=== PATIENT | male | born 1940 | race Caucasian/White ===

== ENCOUNTER 2018-12-19 14:46 | Inpatient (IN) | payer MEDICARE, BC ==
[2018-12-19] MEDS: LEVALBUTEROL (NEB) 1.25 MG/0.5 ML AMP INH (16:57)
[2018-12-19] MEDS: IPRATROPIUM (NEB) 0.5 MG/2.5 ML AMP NEB (16:57)
[2018-12-19 17:22] LABS: WHITE BLOOD COUNT 10.8 10^3/ul (4.8-10.8)
[2018-12-19 17:22] LABS: ABNORMAL IP MESSAGE 1; HEMATOCRIT 37.1 % (42.0-52.0); HEMOGLOBIN 12.4 g/dl (14.0-18.0); MEAN CORPUSCULAR HEMOGLOBIN 30.2 pg (29.0-33.0); MEAN CORPUSCULAR HGB CONC 33.4 g/dl (32.0-37.0); MEAN CORPUSCULAR VOLUME 90.5 fl (82.0-101.0); MEAN PLATELET VOLUME 11.6 fl (7.4-10.4); PLATELET COUNT 228 10^3/UL (140-415); POSITIVE DIFF @See below
[2018-12-19 17:28] LABS: ADD MAN DIFF? YES
[2018-12-19 17:39] LABS: PROTIME 12.3 Sec (11.9-14.9)
[2018-12-19 17:40] LABS: PARTIAL THROMBOPLASTIN TIME 35.3 Sec (23.0-35.0)
[2018-12-19 17:43] LABS: ALANINE AMINOTRANSFERASE 6 IU/L (13-69); ALBUMIN 4.1 g/dl (3.3-4.9); ALBUMIN/GLOBULIN RATIO 0.89; ALKALINE PHOSPHATASE 151 IU/L (42-121); ANION GAP 14 (5-13); ASPARTATE AMINO TRANSFERASE 26 IU/L (15-46); BILIRUBIN,INDIRECT 0.6 mg/dl (0-1.1); BILIRUBIN,TOTAL 0.6 mg/dl (0.2-1.3); BLOOD UREA NITROGEN 34 mg/dl (7-20); CALCIUM 9.5 mg/dl (8.4-10.2); CARBON DIOXIDE 22 mmol/L (21-31); CHLORIDE 100 mmol/L (97-110); CREATININE 1.26 mg/dl (0.61-1.24); GLUCOSE 98 mg/dl (70-220); POTASSIUM 4.9 mmol/L (3.5-5.1); SODIUM 136 mmol/L (135-144); TOTAL PROTEIN 8.7 g/dl (6.1-8.1)
[2018-12-19 17:53] LABS: TROPONIN-I < 0.012 ng/ml (0.000-0.120)
[2018-12-19] MEDS: SODIUM CHLORIDE 0.9% 1L BAG IV* (17:55)
[2018-12-19 18:14] LABS: BAND NEUTROPHILS #M 1.2 10^3/ul (0.0-0.6); BAND NEUTROPHILS % (M) 12 % (0-4); LYMPHOCYTES #M 1.7 10^3/ul (0.8-2.9); LYMPHOCYTES % (M) 16 % (15-51); MONOCYTE #M 2.2 10^3/ul (0.3-0.9); MONOCYTES % (M) 21 % (0-11); PLATELET ESTIMATE NORMAL; POIKILOCYTOSIS 1+ (0-0); SEG NEUT #M 5.6 10^3/ul (1.6-7.5); SEGMENTED NEUTROPHILS (M) % 51 % (39-77); SMUDGE%M 6 % (0-0)
[2018-12-19] MEDS: IODIXANOL LOCM 100 ML BTL (19:09)
[2018-12-19] MEDS: SOD CHLORIDE 0.9% 100 ML (19:09)
[2018-12-19 20:07] LABS: ADD UMIC YES; UR ASCORBIC ACID NEGATIVE (NEGATIVE); UR BILIRUBIN (Dip) NEGATIVE (NEGATIVE); UR BLOOD (Dip) NEGATIVE (NEGATIVE); UR CLARITY SLIGHTLY CLOUDY (CLEAR); UR COLOR AMBER (YELLOW); UR GLUCOSE (Dip) NEGATIVE (NEGATIVE); UR KETONES (Dip) NEGATIVE (NEGATIVE); UR LEUKOCYTE ESTERASE (Dip) NEGATIVE Leu/ul (NEGATIVE); UR NITRITE (Dip) NEGATIVE (NEGATIVE); UR RBC 6 /HPF (0-5); UR SPECIFIC GRAVITY (Dip) 1.042 (1.003-1.030); UR SQUAMOUS EPITHELIAL CELL FEW /HPF (FEW); UR TOTAL PROTEIN (Dip) 2+ mg/dl (NEGATIVE); UR UROBILINOGEN (Dip) 2+ mg/dL (NEGATIVE); UR WBC 4 /HPF (0-5)
[2018-12-19] MEDS: CEFTRIAXONE 1 GM/50 ML (PMX) 50 ML IVPB (20:18)
[2018-12-19] MEDS ORDERED: NACL 0.9% 3 ML SYG IV (20:30)
[2018-12-19] MEDS ORDERED: BISACODYL (EC) 5 MG TAB PO (20:30)
[2018-12-19] MEDS ORDERED: ACETAMINOPHEN 325 MG TAB PO (20:30)
[2018-12-19] MEDS ORDERED: ONDANSETRON 4 MG INJ IV (20:30)
[2018-12-19] MEDS ORDERED: DOCUSATE SODIUM 100 MG CAP PO (20:30)
[2018-12-19] MEDS: AZITHROMYCIN 500MG/NS (PMX) 250 ML IVPB (20:47)
[2018-12-19 22:07] LABS: AADO2 Arterial 72.7 mmHg (7.0-24.0); Allen Test ACCEPTAB; Arterial Base Excess -4.3 mmol/L (-3.0-3); Arterial Blood Gas Oxygen Sat 93.1 mmHG (95.0-100.0); Arterial COHb 0.2 % (0.0-3.0); Arterial Fraction of Oxyhgb 92.6 % (93.0-99.0); Arterial HCO3 21.2 mmol/L (22.0-26.0); Arterial MetHb 0.3 % (0.0-1.5); Arterial pCO2 40.7 mmhg (35-45); MODE NASAL CANNULA; Site Right Radial
[2018-12-19] MEDS: METHYLPREDNISOLONE 125 MG INJ IV (22:23)
[2018-12-19] MEDS: hydrALAzine 20 MG INJ IV (23:00)
[2018-12-19] MEDS: IPRATROPIUM (NEB) 0.5 MG/2.5 ML AMP HHN (23:00)
[2018-12-19] MEDS: LEVALBUTEROL (NEB) 1.25 MG/0.5 ML AMP HHN (23:00)
[2018-12-20] MEDS: LORAZEPAM 2 MG INJ IV
[2018-12-20] MEDS: IPRATROPIUM (NEB) 0.5 MG/2.5 ML AMP HHN ×6 (00:05→20:16)
[2018-12-20] MEDS: LEVALBUTEROL (NEB) 1.25 MG/0.5 ML AMP HHN ×6 (00:05→20:16)
[2018-12-20] MEDS ORDERED: ALBUTEROL/IPRATROPIUM (NEB) 3 ML AMP HHN (01:00)
[2018-12-20 06:40] LABS: ADD MAN DIFF? NO
[2018-12-20] MEDS: PANTOPRAZOLE (EC) 40 MG TAB PO (06:50)
[2018-12-20 07:01] LABS: WHITE BLOOD COUNT 6.8 10^3/ul (4.8-10.8)
[2018-12-20 07:01] LABS: ABNORMAL IP MESSAGE 1; BASOPHILS % 0.3 % (0.0-2.0); HEMATOCRIT 31.8 % (42.0-52.0); HEMOGLOBIN 10.6 g/dl (14.0-18.0); LYMPHOCYTES # 0.4 10^3/ul (0.8-2.9); LYMPHOCYTES % 5.6 % (15.0-51.0); MEAN CORPUSCULAR HEMOGLOBIN 30.2 pg (29.0-33.0); MEAN CORPUSCULAR HGB CONC 33.3 g/dl (32.0-37.0); MEAN CORPUSCULAR VOLUME 90.6 fl (82.0-101.0); MONOCYTE # 0.3 10^3/ul (0.3-0.9); MONOCYTES % 4.3 % (0.0-11.0); NEUTROPHILS % 88.8 % (39.0-77.0); PLATELET COUNT 234 10^3/UL (140-415); POSITIVE DIFF @See below; RED BLOOD COUNT 3.51 10^6/ul (4.70-6.10); RED CELL DISTRIBUTION WIDTH 12.8 % (11.5-14.5)
[2018-12-20 07:08] LABS: HEMOGLOBIN A1C 5.2 % (0-5.9)
[2018-12-20 07:41] LABS: ALBUMIN 3.3 g/dl (3.3-4.9); ALBUMIN/GLOBULIN RATIO 0.86; ALKALINE PHOSPHATASE 130 IU/L (42-121); ANION GAP 12 (5-13); ASPARTATE AMINO TRANSFERASE 19 IU/L (15-46); BILIRUBIN,INDIRECT 0.2 mg/dl (0-1.1); BILIRUBIN,TOTAL 0.2 mg/dl (0.2-1.3); BLOOD UREA NITROGEN 24 mg/dl (7-20); CALCIUM 8.8 mg/dl (8.4-10.2); CARBON DIOXIDE 24 mmol/L (21-31); CHLORIDE 103 mmol/L (97-110); CHOL/HDL RATIO 4.4 RATIO; CHOLESTEROL 106 mg/dl (100-200); CREATININE 0.93 mg/dl (0.61-1.24); GLUCOSE 165 mg/dl (70-220); HDL CHOLESTEROL 24 mg/dl (31-75); LDL CHOLESTEROL,CALCULATED 62 mg/dl; MAGNESIUM 1.5 mg/dl (1.7-2.5); POTASSIUM 3.8 mmol/L (3.5-5.1); SODIUM 139 mmol/L (135-144); TOTAL PROTEIN 7.1 g/dl (6.1-8.1); TRIGLYCERIDES 98 mg/dl (0-149)
[2018-12-20 07:45] LABS: ALANINE AMINOTRANSFERASE < 6 IU/L (13-69)
[2018-12-20 07:50] LABS: THYROID STIMULATING HORMONE 0.057 MIU/L (0.465-4.680)
[2018-12-20] MEDS: predniSONE 20 MG TAB PO ×2 (08:25→21:44)
[2018-12-20] MEDS: AMLODIPINE 5 MG TAB PO (08:26)
[2018-12-20] MEDS: CARBIDOPA/LEVODOPA (25/100) TAB PO ×3 (08:31→21:44)
[2018-12-20] MEDS: MAGNESIUM SULFATE 2 GM/50 ML 50 ML IVPB (15:16)
[2018-12-20] MEDS: ASPIRIN 81 MG TAB PO (15:26)
[2018-12-20 15:27] LABS: CREATINE KINASE 73 IU/L (23-200)
[2018-12-20 15:40] LABS: CK INDEX 7.7
[2018-12-20 15:45] LABS: CK-MB 5.59 ng/ml (0.0-2.4); TROPONIN-I 0.206 ng/ml (0.000-0.120)
[2018-12-20] MEDS: CEFTRIAXONE 1 GM/50 ML (PMX) 50 ML IVPB (17:50)
[2018-12-20] MEDS: AZITHROMYCIN 500MG/NS (PMX) 250 ML IVPB (18:08)
[2018-12-20] MEDS: ATORVASTATIN 40 MG TAB PO (21:44)
[2018-12-20] MEDS: HEPARIN 5,000 UNIT/1 ML VIAL SC (23:01)
[2018-12-21] MEDS: IPRATROPIUM (NEB) 0.5 MG/2.5 ML AMP HHN ×6 (01:57→20:07)
[2018-12-21] MEDS: LEVALBUTEROL (NEB) 1.25 MG/0.5 ML AMP HHN ×6 (01:57→20:07)
[2018-12-21] MEDS: PANTOPRAZOLE (EC) 40 MG TAB PO (05:44)
[2018-12-21 06:17] LABS: ADD MAN DIFF? NO
[2018-12-21 06:28] LABS: BASOPHIL # 0.1 10^3/ul (0.0-0.1); BASOPHILS % 0.7 % (0.0-2.0); HEMATOCRIT 33.2 % (42.0-52.0); HEMOGLOBIN 11.1 g/dl (14.0-18.0); LYMPHOCYTES # 1.2 10^3/ul (0.8-2.9); LYMPHOCYTES % 6.4 % (15.0-51.0); MEAN CORPUSCULAR HEMOGLOBIN 30.1 pg (29.0-33.0); MEAN CORPUSCULAR HGB CONC 33.4 g/dl (32.0-37.0); MONOCYTE # 1.5 10^3/ul (0.3-0.9); MONOCYTES % 8.1 % (0.0-11.0); NEUTROPHIL # 14.6 10^3/ul (1.6-7.5); PLATELET COUNT 383 10^3/UL (140-415); RED BLOOD COUNT 3.69 10^6/ul (4.70-6.10); RED CELL DISTRIBUTION WIDTH 12.8 % (11.5-14.5)
[2018-12-21 06:28] LABS: WHITE BLOOD COUNT 18.2 10^3/ul (4.8-10.8)
[2018-12-21 06:39] LABS: ANION GAP 16 (5-13); BLOOD UREA NITROGEN 29 mg/dl (7-20); CARBON DIOXIDE 18 mmol/L (21-31); CHLORIDE 107 mmol/L (97-110); CREATININE 0.99 mg/dl (0.61-1.24); GLUCOSE 190 mg/dl (70-220); POTASSIUM 3.8 mmol/L (3.5-5.1); SODIUM 141 mmol/L (135-144)
[2018-12-21 06:55] LABS: CREATINE KINASE 140 IU/L (23-200)
[2018-12-21 07:04] LABS: CK INDEX 6.2
[2018-12-21 07:22] LABS: CK-MB 8.71 ng/ml (0.0-2.4); TROPONIN-I 0.148 ng/ml (0.000-0.120)
[2018-12-21] MEDS: AMLODIPINE 5 MG TAB PO (08:36)
[2018-12-21] MEDS: predniSONE 20 MG TAB PO (08:36)
[2018-12-21] MEDS: ASPIRIN 81 MG TAB PO (08:36)
[2018-12-21] MEDS: CARBIDOPA/LEVODOPA (25/100) TAB PO ×3 (08:36→20:36)
[2018-12-21] MEDS: HEPARIN 5,000 UNIT/1 ML VIAL SC ×2 (08:40→20:53)
[2018-12-21 10:45] LABS: AADO2 Arterial 92.4 mmHg (7.0-24.0); Allen Test ACCEPTAB; Arterial Base Excess -1.3 mmol/L (-3.0-3); Arterial Blood Gas Oxygen Sat 96.1 mmHG (95.0-100.0); Arterial COHb 0 % (0.0-3.0); Arterial Fraction of Oxyhgb 95.9 % (93.0-99.0); Arterial HCO3 22.3 mmol/L (22.0-26.0); Arterial MetHb 0.2 % (0.0-1.5); Arterial pCO2 33.4 mmhg (35-45); MODE NASAL CANNULA; Site Left Radial
[2018-12-21] MEDS: METOPROLOL 25 MG TAB PO ×2 (12:39→20:36)
[2018-12-21] MEDS: CEFTRIAXONE 1 GM/50 ML (PMX) 50 ML IVPB (17:34)
[2018-12-21] MEDS: AZITHROMYCIN 500MG/NS (PMX) 250 ML IVPB (18:23)
[2018-12-21] MEDS: ATORVASTATIN 40 MG TAB PO (20:35)
[2018-12-21] MEDS: MELATONIN 5 MG TABLET PO (20:36)
[2018-12-21] MEDS: LORAZEPAM 2 MG INJ IV (21:51)
[2018-12-22] MEDS: IPRATROPIUM (NEB) 0.5 MG/2.5 ML AMP HHN ×6 (00:52→20:08)
[2018-12-22] MEDS: LEVALBUTEROL (NEB) 1.25 MG/0.5 ML AMP HHN ×6 (00:52→20:07)
[2018-12-22] MEDS: HALOPERIDOL 5 MG INJ IM (04:08)
[2018-12-22] MEDS: PANTOPRAZOLE (EC) 40 MG TAB PO (05:56)
[2018-12-22 07:21] LABS: ADD MAN DIFF? NO
[2018-12-22 07:27] LABS: ABNORMAL IP MESSAGE 1; BASOPHIL # 0.1 10^3/ul (0.0-0.1); BASOPHILS % 0.4 % (0.0-2.0); EOSINOPHILS % 0.1 % (0.0-7.0); HEMATOCRIT 32.1 % (42.0-52.0); HEMOGLOBIN 10.7 g/dl (14.0-18.0); LYMPHOCYTES # 1.5 10^3/ul (0.8-2.9); LYMPHOCYTES % 8.4 % (15.0-51.0); MEAN CORPUSCULAR HEMOGLOBIN 30.1 pg (29.0-33.0); MEAN CORPUSCULAR HGB CONC 33.3 g/dl (32.0-37.0); MEAN CORPUSCULAR VOLUME 90.2 fl (82.0-101.0); MEAN PLATELET VOLUME 10.1 fl (7.4-10.4); MONOCYTE # 1.6 10^3/ul (0.3-0.9); MONOCYTES % 9.1 % (0.0-11.0); NEUTROPHIL # 14.1 10^3/ul (1.6-7.5); NEUTROPHILS % 79.1 % (39.0-77.0); PLATELET COUNT 354 10^3/UL (140-415); POSITIVE DIFF @See below; RED BLOOD COUNT 3.56 10^6/ul (4.70-6.10); RED CELL DISTRIBUTION WIDTH 12.9 % (11.5-14.5)
[2018-12-22 07:27] LABS: WHITE BLOOD COUNT 17.8 10^3/ul (4.8-10.8)
[2018-12-22 07:42] LABS: ANION GAP 12 (5-13); BLOOD UREA NITROGEN 25 mg/dl (7-20); CALCIUM 9.1 mg/dl (8.4-10.2); CARBON DIOXIDE 27 mmol/L (21-31); CHLORIDE 102 mmol/L (97-110); CREATININE 0.97 mg/dl (0.61-1.24); GLUCOSE 82 mg/dl (70-220); POTASSIUM 3.8 mmol/L (3.5-5.1); SODIUM 141 mmol/L (135-144)
[2018-12-22] MEDS: METOPROLOL 25 MG TAB PO ×2 (08:44→21:53)
[2018-12-22] MEDS: ASPIRIN 81 MG TAB PO (08:44)
[2018-12-22] MEDS: CARBIDOPA/LEVODOPA (25/100) TAB PO ×3 (08:45→21:52)
[2018-12-22] MEDS: HEPARIN 5,000 UNIT/1 ML VIAL SC ×2 (08:45→21:59)
[2018-12-22] MEDS: predniSONE 20 MG TAB PO (08:46)
[2018-12-22] MEDS: AMLODIPINE 10 MG TAB PO (09:07)
[2018-12-22] MEDS: CEFTRIAXONE 1 GM/50 ML (PMX) 50 ML IVPB (17:28)
[2018-12-22] MEDS: AZITHROMYCIN 500MG/NS (PMX) 250 ML IVPB (18:13)
[2018-12-22] MEDS: ATORVASTATIN 40 MG TAB PO (21:52)
[2018-12-22] MEDS: MELATONIN 5 MG TABLET PO (21:52)
[2018-12-23] MEDS: IPRATROPIUM (NEB) 0.5 MG/2.5 ML AMP HHN ×5 (00:06→16:47)
[2018-12-23] MEDS: LEVALBUTEROL (NEB) 1.25 MG/0.5 ML AMP HHN ×5 (00:06→16:47)
[2018-12-23] MEDS: PANTOPRAZOLE (EC) 40 MG TAB PO (06:57)
[2018-12-23 08:35] LABS: ADD MAN DIFF? NO
[2018-12-23] MEDS: ASPIRIN 81 MG TAB PO (08:38)
[2018-12-23] MEDS: AMLODIPINE 10 MG TAB PO (08:38)
[2018-12-23] MEDS: predniSONE 20 MG TAB PO (08:38)
[2018-12-23] MEDS: METOPROLOL 25 MG TAB PO (08:39)
[2018-12-23] MEDS: CARBIDOPA/LEVODOPA (25/100) TAB PO ×2 (08:39→13:04)
[2018-12-23] MEDS: HEPARIN 5,000 UNIT/1 ML VIAL SC (08:40)
[2018-12-23 08:41] LABS: BASOPHIL # 0.1 10^3/ul (0.0-0.1); BASOPHILS % 0.4 % (0.0-2.0); EOSINOPHILS % 0.1 % (0.0-7.0); HEMATOCRIT 29.9 % (42.0-52.0); HEMOGLOBIN 9.9 g/dl (14.0-18.0); LYMPHOCYTES # 1.8 10^3/ul (0.8-2.9); LYMPHOCYTES % 11.2 % (15.0-51.0); MEAN CORPUSCULAR HEMOGLOBIN 30.1 pg (29.0-33.0); MEAN CORPUSCULAR HGB CONC 33.1 g/dl (32.0-37.0); MEAN CORPUSCULAR VOLUME 90.9 fl (82.0-101.0); MEAN PLATELET VOLUME 10.1 fl (7.4-10.4); MONOCYTE # 1.3 10^3/ul (0.3-0.9); MONOCYTES % 7.7 % (0.0-11.0); NEUTROPHIL # 12.7 10^3/ul (1.6-7.5); NEUTROPHILS % 77.4 % (39.0-77.0); PLATELET COUNT 335 10^3/UL (140-415); RED BLOOD COUNT 3.29 10^6/ul (4.70-6.10); RED CELL DISTRIBUTION WIDTH 13.1 % (11.5-14.5)
[2018-12-23 08:41] LABS: WHITE BLOOD COUNT 16.4 10^3/ul (4.8-10.8)
[2018-12-23 09:10] LABS: ANION GAP 8 (5-13); BLOOD UREA NITROGEN 20 mg/dl (7-20); CALCIUM 8.7 mg/dl (8.4-10.2); CARBON DIOXIDE 29 mmol/L (21-31); CHLORIDE 105 mmol/L (97-110); CREATININE 0.88 mg/dl (0.61-1.24); GLUCOSE 86 mg/dl (70-220); POTASSIUM 3.9 mmol/L (3.5-5.1); SODIUM 142 mmol/L (135-144)
== END 2018-12-23 17:58 | disposition home or self-care (01) | DRG 194 ==
LOC: TEL 12-21 09:23 → E/R 14:46 → TEL 12-21 17:43
PROVIDERS: Family Medicine
DX: J18.9 Pneumonia, unspecified organism (principal); J44.1 Chronic obstructive pulmonary disease with (acute) exacerbation; N17.9 Acute kidney failure, unspecified; G20 Parkinson's disease; E86.0 Dehydration; R00.1 Bradycardia, unspecified; Z95.1 Presence of aortocoronary bypass graft; I10 Essential (primary) hypertension; E78.5 Hyperlipidemia, unspecified; I25.10 Atherosclerotic heart disease of native coronary artery without angina pectoris; J06.9 Acute upper respiratory infection, unspecified; Y95 Nosocomial condition; Z79.82 Long term (current) use of aspirin
CPT/HCPCS: 36415; 36600; 70450; 71045; 71275; 80048; 80053; 80061; 81001; 82550; 82553; 82803; 83036; 83605; 83735; 84443; 84484; 85025; 85610; 85730; 87040; 87086; 93005; 93306; 94640; 94664; 96360; 96361; 99285-25; G0378